=== PATIENT | female | born 1990 | race Two or more races ===

== ENCOUNTER 2021-03-31 11:45 | Emergency (ER) | payer SELFPAY ==
[~2021-03-31] VITALS: Ht 167.6 cm; Wt 83.0 kg
[2021-03-31] MEDS ORDERED: IV NORMAL SALINE 1000ML BAG 1,000 ML IV ONE (13:15)
[2021-03-31] MEDS ORDERED: ONDANSETRON PF 4 MG/2 ML VIAL. IV ONE (13:15)
--- NOTE | 2021-03-31 13:27 | ED.ADGEN ---
Past Medical History Past Medical History: No Pertinent History Past Surgical History: No Surgical History, Smoking Status: Never Smoker Alcohol Use: None Drug Use: None General Adult EDM: Chief Complaint: ABDOMINAL PAIN IN HPI: HPI: Patient is a 30 year old female who presents emergency department with complaints of left-sided abdominal pain, nausea, vomiting, and diarrhea for the last 2 days. Patient states she is currently about 17 weeks , her last menstrual cycle was on November 282020 and her estimated due date is September 17, 2021. Patient reports she does not have an PSYCHOLOGIST COUNSELING, she is 6, para 4, with 1 previous miscarriage at 16 weeks of gestation. Patient states that 2 days ago she did have some spotting from her vagina but denies any spotting since then. She reports that she has vomited twice in the last 24 hours and she has had at least 10 episodes of diarrhea in the last 24 hours. Patient denies any blood in the stool however reports bright red blood from her rectum on the toilet tissue when she wipes. Patient denies any fever, cough, shortness of breath, headache, dysuria, hematuria, increased urinary frequency, or back pain. She currently rates the pain a 7 out of 10 on the pain scale, she denies any alleviating or exacerbating factors. Review of Systems: Review of Systems: Complete ROS is negative unless otherwise noted in HPI. Current Medications: Current Medications Medications (Trade) Dose Ordered Sig/[facility] Start Time Stop Time Status Last Admin Dose Admin Metoprolol Succinate (Toprol Xl) 50 mg 1X ONCE 03/31/21 16:15 03/31/21 16:16 Cancel Ondansetron HCl (Zofran) 4 mg 1X ONCE 03/31/21 13:15 03/31/21 13:16 DC 03/31/21 13:59 4 MG Sodium Chloride 1,000 ml @ 1,000 mls/hr 1X ONCE 03/31/21 13:15 03/31/21 14:14 DC 03/31/21 13:59 1,000 MLS/HR Allergies: Allergies: Allergies Coded Allergies Type Severity Reaction Last Updated Verified No Known Drug Allergies 03/31/21 No Physical Exam: PE: See Above Constitutional: Well developed, well nourished, no acute distress, non-toxic appearance. HENT: Normocephalic, atraumatic, bilateral external ears normal, nose normal. Eyes: PERRLA, EOMI, conjunctiva normal, no discharge. Neck: Normal range of motion, no stridor. Cardiovascular: Heart rate regular rhythm Lungs & Thorax: Respirations even and unlabored, no retractions, no respiratory distress Abdomen:Nontender, soft, external rectum appears normal without active bleeding, small hemorrhoid present. Skin: Warm, dry, no erythema, no rash. Back: No tenderness Extremities: No cyanosis, ROM intact, no edema. Neurologic: Alert and oriented X 3, no focal deficits noted. Psychologic: Affect normal, judgement normal, mood normal. Current Patient Data: Labs: Laboratory Tests Test 03/31/21 11:55 03/31/21 12:01 03/31/21 13:50 Urine Collection Type Unknown Urine Color Yellow Urine Clarity Clear Urine pH 6.0 (<5.0-8.0) Urine Specific [place] 1.015 (1.000-1.030) Urine Protein Negative mg/dL (NEG-TRACE) Urine Glucose (UA) Negative mg/dL (NEG) Urine Ketones (Stick) Negative mg/dL (NEG) Urine Blood Negative (NEG) Urine Nitrite Negative (NEG) Urine Bilirubin Negative (NEG) Urine Urobilinogen Dipstick 0.2 mg/dL (0.2 mg/dL) Urine Leukocyte Esterase Trace (NEG) Urine RBC Occ /HPF (0-2) Urine WBC 1-4 /HPF (0-4) Urine Squamous Epithelial Cells Many /LPF Urine Bacteria Many /HPF (0-FEW) Urine Mucus Slight /LPF Urine Sperm Present /HPF POC Urine HCG, Qualitative Hcg positive (Negative) White Blood Count 8.1 x10^3/uL (4.0-11.0) Red Blood Count 3.87 x10^6/uL (3.50-5.40) Hemoglobin 11.5 g/dL (12.0-15.5) L Hematocrit 33.3 % (36.0-47.0) L Mean Corpuscular Volume 86 fL (79-100) Mean Corpuscular Hemoglobin 30 pg (25-35) Mean Corpuscular Hemoglobin Concent 35 g/dL (31-37) Red Cell Distribution Width 13.2 % (11.5-14.5) Platelet Count 263 x10^3/uL (140-400) Neutrophils (%) (Auto) 77 % (31-73) H Lymphocytes (%) (Auto) 15 % (24-48) L Monocytes (%) (Auto) 7 % (0-9) Eosinophils (%) (Auto) 1 % (0-3) Basophils (%) (Auto) 1 % (0-3) Neutrophils # (Auto) 6.3 x10^3/uL (1.8-7.7) Lymphocytes # (Auto) 1.2 x10^3/uL (1.0-4.8) Monocytes # (Auto) 0.6 x10^3/uL (0.0-1.1) Eosinophils # (Auto) 0.1 x10^3/uL (0.0-0.7) Basophils # (Auto) 0.0 x10^3/uL (0.0-0.2) Maternal Serum HCG Beta Subunit 7950 mIU/mL (0-5) H Sodium Level 141 mmol/L (136-145) Potassium Level 3.8 mmol/L (3.5-5.1) Chloride Level 108 mmol/L (98-107) H Carbon Dioxide Level 23 mmol/L (21-32) Anion Gap 10 (6-14) Blood Urea Nitrogen 4 mg/dL (7-20) L Creatinine 0.5 mg/dL (0.6-1.0) L Estimated GFR (Cockcroft-Gault) 143.9 BUN/Creatinine Ratio 8 (6-20) Glucose Level 83 mg/dL (70-99) Calcium Level 8.6 mg/dL (8.5-10.1) Magnesium Level 1.8 mg/dL (1.8-2.4) Total Bilirubin 0.1 mg/dL (0.2-1.0) L Aspartate Amino Transferase (AST) 16 U/L (15-37) Alanine Aminotransferase (ALT) 23 U/L (14-59) Alkaline Phosphatase 75 U/L (46-116) Total Protein 6.7 g/dL (6.4-8.2) Albumin 2.8 g/dL (3.4-5.0) L Albumin/Globulin Ratio 0.7 (1.0-1.7) L Lipase 84 U/L (73-393) Laboratory Tests 03/31/21 13:50 Laboratory Tests 03/31/21 13:50 Vital Signs: Vital Signs Date Time Temp Pulse Resp B/P (MAP) Pulse Ox O2 Delivery O2 Flow Rate FiO2 03/31/21 12:25 98.4 96 17 120/65 (83) 96 Room Air 98.4 EKG: EKG: [] Heart Score: C/O Chest Pain: No Risk Scores: Score 0 - 3: 2.5% MACE over next 6 weeks - Discharge Home Score 4 - 6: 20.3% MACE over next 6 weeks - Admit for Clinical Observation Score 7 - 10: 72.7% MACE over next 6 weeks - Early Invasive Strategies Radiology/Procedures: Radiology/Procedures: PROCEDURE: OB LIMITED EXAM: Ultrasound US OB LIMITED 03/31/2021 1:46 PM INDICATION: Spotting, vaginal bleeding, . LMP 11/28/2020. COMPARISON: None FINDINGS: There is a single living intrauterine gestation in cephalic position. heart rate is [address][place] is anterior. The cervix measures 6.2 cm. stomach, bladder, and kidneys were visualized. biometry: Biparietal diameter: 4.4 cm, 19 weeks 2 days Head circumference: 16.4 cm, 19 weeks 1 day Abdominal circumference: 14.4 cm, 19 weeks 5 days, 97th percentile Femur length: 3 cm, 19 weeks 2 days, 94th percentile HC/AC ratio: 1.14 ISIDRA: 10.9 cm Estimated gestational age by ultrasound: 19 weeks 3 days. Estimated weight: 295 g. IMPRESSION: Single living intrauterine with gestational age by ult rasound 19 weeks 3 days. This is 2 weeks and 1 day ahead of gestational age by LMP. Estimated weight is 295 g. Electronically signed by: Nayeli Bowers MD (03/31/2021 2:42 PM) [id number] [] Course & Med Decision Making: Course & Med Decision Making Pertinent Labs and Imaging studies reviewed. (See chart for details) 2590- I spoke with Dr. Monroe about the patient and the work-up that was done. Per Dr. Monroe he is not currently taking new OB patients, he request that I provide the patient with Dr. Wharton and Dr. Watters's information for follow-up. Dragon Disclaimer: Dragharley Disclaimer: This electronic medical record was generated, in whole or in part, using a voice recognition dictation system. Departure Departure Impression: Primary Impression: Nausea, vomiting, and diarrhea Additional Impression: Second trimester Disposition: 01 HOME / SELF CARE / HOMELESS Condition: STABLE Referrals: JIA WHARTON MD, SARASWATHI MD Patient Instructions: ABCs of , Abdominal Pain During , Vtno-wd-Amet, - Second Trimester, [id number] Additional Instructions: Recommend clear fluids for the next 24 hours. Then you may advance to bland foods such as bananas, rice, applesauce, and dry toast. Follow-up with Dr. Wharton or Dr. Watters in the next 1-2 days. Return to the emergency room if your symptoms worsen or if fever develops. Problem Qualifiers PAM FINCH CIGAR HEAD PERFORATOR Mar 31, 2021 13:27
[2021-03-31 13:58] LABS: BILIRUBIN,URINE NEGATIVE (NEG); CLARITY,URINE CLEAR; COLOR,URINE YELLOW; NITRITE,URINE NEGATIVE (NEG); PROTEIN,URINE NEGATIVE (NEG-TRACE); UROBILINOGEN,URINE 0.2 mg/dL (0.2 mg/dL)
[2021-03-31 14:09] LABS: BASO % 1 % (0-3); EOS # 0.1 x10^3/uL (0.0-0.7); EOS % 1 % (0-3); HEMATOCRIT 33.3 % (36.0-47.0); HEMOGLOBIN 11.5 g/dL (12.0-15.5); LYMPH # 1.2 x10^3/uL (1.0-4.8); LYMPH % 15 % (24-48); MEAN CORPUSCULAR HEMOGLOBIN 30 pg (25-35); MEAN CORPUSCULAR HGB CONC 35 g/dL (31-37); MEAN CORPUSCULAR VOLUME 86 fL (79-100); MONO # 0.6 x10^3/uL (0.0-1.1); MONO % 7 % (0-9); NEUT # 6.3 x10^3/uL (1.8-7.7); NEUT % 77 % (31-73); PLATELET COUNT 263 x10^3/uL (140-400); RED BLOOD COUNT 3.87 x10^6/uL (3.50-5.40); RED CELL DISTRIBUTION WIDTH 13.2 % (11.5-14.5); WHITE BLOOD COUNT 8.1 x10^3/uL (4.0-11.0)
[2021-03-31 14:22] LABS: SPERM,URINE PRESENT /HPF
[2021-03-31 14:23] LABS: BACTERIA,URINE MANY /HPF (0-FEW); RBC,URINE OCC /HPF (0-2)
--- NOTE | 2021-03-31 14:45 | RAD ---
EXAM: Ultrasound US OB LIMITED 03/31/2021 1:46 PM INDICATION: Spotting, vaginal bleeding, . LMP 11/28/2020. COMPARISON: None FINDINGS: There is a single living intrauterine gestation in cephalic position. heart rate is [address] [place] is anterior. The cervix measures 6.2 cm. stomach, bladder, and kidneys were visualized. biometry: Biparietal diameter: 4.4 cm, 19 weeks 2 days Head circumference: 16.4 cm, 19 weeks 1 day Abdominal circumference: 14.4 cm, 19 weeks 5 days, 97th percentile Femur length: 3 cm, 19 weeks 2 days, 94th percentile HC/AC ratio: 1.14 ISIDRA: 10.9 cm Estimated gestational age by ultrasound: 19 weeks 3 days. Estimated weight: 295 g. IMPRESSION: Single living intrauterine with gestational age by ultrasound 19 weeks 3 days. This is 2 weeks and 1 day ahead of gestational age by LMP. Estimated weight is 295 g. Electronically signed by: Nayeli Bowers MD (03/31/2021 2:42 PM) [id number]
[2021-03-31 15:04] LABS: CALCIUM 8.6 mg/dL (8.5-10.1); CREATININE 0.5 mg/dL (0.6-1.0); GFR 143.9; POTASSIUM 3.8 mmol/L (3.5-5.1)
[2021-03-31 15:10] LABS: ALBUMIN 2.8 g/dL (3.4-5.0); ALBUMIN/GLOBULIN RATIO 0.7 (1.0-1.7); MAGNESIUM 1.8 mg/dL (1.8-2.4); TOTAL BILIRUBIN 0.1 mg/dL (0.2-1.0); TOTAL PROTEIN 6.7 g/dL (6.4-8.2)
[2021-03-31] MEDS ORDERED: METOPROLOL SUCC 24HR ER 25 MG TAB.ER.24H. PO ONE (16:15)
[2021-03-31 16:30] VITALS: BP 132/70
== END 2021-03-31 16:48 | disposition home or self-care (01) ==
LOC: ER 11:45
DX: O21.9 Vomiting of pregnancy, unspecified (principal); R19.7 Diarrhea, unspecified; Z3A.19 19 weeks gestation of pregnancy
CPT/HCPCS: 36415; 76815; 80053; 81001; 81025; 83690; 83735; 84702; 85025; 86900; 86901; 87086; 96361; 96374; 99285; J2405; J7030

== ENCOUNTER 2021-10-14 15:42 | Emergency (ER) | payer MEDICAID ==
[~2021-10-14] VITALS: Ht 157.5 cm; Wt 83.3 kg
[2021-10-14 16:10] VITALS: BP 135/77
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
[2021-10-14 16:54] LABS: U PREG PATIENT NEGATIVE (NEG)
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
== END 2021-10-14 18:25 | disposition home or self-care (01) ==
LOC: ER 15:42
DX: M54.2 Cervicalgia (principal); R55 Syncope and collapse; R51.9 Headache, unspecified; R07.89 Other chest pain; G89.11 Acute pain due to trauma; V49.59XA Passenger injured in collision with other motor vehicles in traffic accident, initial encounter; Y93.89 Activity, other specified; Y92.488 Other paved roadways as the place of occurrence of the external cause; Y99.8 Other external cause status
CPT/HCPCS: 70450; 71250; 72125; 81025; 99284-25